=== PATIENT | male | born 1940 | race Caucasian/White ===

== ENCOUNTER → 2018-09-01 | Outpatient (REF) | payer OTHER, MEDICARE ==
[2018-09-02 14:14] LABS: ANTINUCLEAR ANTIBODIES DIRECT Negative (Negative)
== END ==
LOC: M LABNEURO 10:37
PROVIDERS: ATTEND Psychiatry & Neurology Neurology
DX: G43.909 Migraine, unspecified, not intractable, without status migrainosus (principal)

== ENCOUNTER → 2019-07-21 | Outpatient (REF) | payer MEDICARE, OTHER ==
[2019-07-21 13:59] LABS: FREE T4 1.07 NG/DL (0.76-1.46); TOTAL PROTEIN 7.1 GM/DL (6.4-8.2)
[2019-07-21 14:01] LABS: FOLATE > 24.0 NG/ML; VITAMIN B12 LEVEL 1326 PG/ML
[2019-07-21 15:00] LABS: HEMOGLOBIN A1c 5.4 %
[2019-07-25 11:02] LABS: ALBUMIN 3.97 GM/DL (3.29-5.55); ALBUMIN % 55.9 % (55.8-66.1); ALPHA-1-GLOBULIN % 6.1 % (2.9-4.9); ALPHA-1-GLOBULINS 0.43 GM/DL (0.17-0.41); ALPHA-2-GLOBULINS % 13.9 % (7.1-11.8); BETA-2-GLOBULINS % 5.9 % (3.2-6.5); GAMMA GLOBULIN % 13.2 % (11.1-18.8)
[2019-07-25 11:03] LABS: ALPHA-2-GLOBULINS 0.99 GM/DL (0.42-0.99); BETA-1-GLOBULINS 0.36 GM/DL (0.28-0.60); BETA-2-GLOBULINS 0.42 GM/DL (0.19-0.55); GAMMA GLOBULINS 0.94 GM/DL (0.65-1.58)
== END ==
LOC: M LABNEURO 11:32
PROVIDERS: ATTEND Psychiatry & Neurology Neurology
DX: E11.9 Type 2 diabetes mellitus without complications (principal); R26.81 Unsteadiness on feet; E07.9 Disorder of thyroid, unspecified

== ENCOUNTER → 2021-09-11 | Outpatient (CLI) | payer MEDICARE, OTHER ==
[~2021-09-11] MED LIST: AMLO1TAB24 PO; AMLO1TAB25 PO; ATOR40TA75 PO; BISA5TAB72 PO; CITRTAB16 PO; CVS5000S2 PO; FERR325T3 PO; FOLI1TAB11 PO; GLUC1TAB58 PO; MARIJUANA; MIRT-62 PO; MULTTAB86 PO; OMEG12003 PO; OXYC10TA12 PO; PANT40TA29 PO; PROP60CA PO
== END ==
LOC: M PAIN 11:15
PROVIDERS: ATTEND Nurse Practitioner Family
DX: M79.10 Myalgia, unspecified site (principal); M54.2 Cervicalgia; M96.1 Postlaminectomy syndrome, not elsewhere classified; Z86.59 Personal history of other mental and behavioral disorders; E66.01 Morbid (severe) obesity due to excess calories; Z68.41 Body mass index [BMI] 40.0-44.9, adult; Z79.899 Other long term (current) drug therapy

== ENCOUNTER → 2021-09-18 | Outpatient (CLI) | payer MEDICARE, OTHER | LOC: M LABSMTC 11:54 | PROVIDERS: ATTEND Anesthesiology | DX: Z01.812 Encounter for preprocedural laboratory examination (principal); Z20.822 Contact with and (suspected) exposure to COVID-19 ==

== ENCOUNTER → 2021-09-24 | Outpatient (CLI) | payer MEDICARE, OTHER | LOC: M LABSMTC 09:02 | PROVIDERS: ATTEND Anesthesiology | DX: Z01.812 Encounter for preprocedural laboratory examination (principal); Z11.52 Encounter for screening for COVID-19 ==

== ENCOUNTER → 2021-10-23 | Outpatient (CLI) | payer MEDICARE, OTHER ==
[~2021-10-23] MED LIST changes: +FLUO10CA18 PO; +MELA5TAB47 PO
== END ==
LOC: M LABSMTC 10:16
PROVIDERS: ATTEND Anesthesiology
DX: Z01.812 Encounter for preprocedural laboratory examination (principal); Z20.822 Contact with and (suspected) exposure to COVID-19

== ENCOUNTER 2021-10-28 08:31 | Day surgery (SDC) | payer OTHER ==
[~2021-10-28] VITALS: Ht 172.7 cm; Wt 75.2 kg
[~2021-10-28 08:31] MED LIST changes: +NS 1,000 ML IV ONE
[2021-10-28] MEDS ORDERED: propofoL 200 MG/20 ML VIAL As Ordered ONE (10:34)
[2021-10-28] MEDS ORDERED: LIDOCAINE 2% 100MG/5ML SDV (FOR ANES.) As Ordered ONE (10:34)
[2021-10-28] MEDS ORDERED: LIDOCAINE VISCOUS 2% SOLN 15ML UDC As Ordered ONE (11:12)
[2021-10-28 12:00] VITALS: BP 132/61
== END 2021-10-28 12:08 | disposition home or self-care (01) ==
LOC: M OPP 08:31
PROVIDERS: ATTEND Internal Medicine Gastroenterology
DX: D12.6 Benign neoplasm of colon, unspecified (principal); K64.8 Other hemorrhoids; R93.3 Abnormal findings on diagnostic imaging of other parts of digestive tract; Z98.0 Intestinal bypass and anastomosis status; R13.10 Dysphagia, unspecified; Z79.899 Other long term (current) drug therapy; Z85.46 Personal history of malignant neoplasm of prostate

== ENCOUNTER → 2021-10-29 | Outpatient (CLI) | payer MEDICARE, OTHER ==
[~2021-10-29] MED LIST changes: -NS 1,000 ML IV ONE
== END ==
LOC: M LABSMTC 10:24
PROVIDERS: ATTEND Anesthesiology
DX: Z01.812 Encounter for preprocedural laboratory examination (principal); Z20.822 Contact with and (suspected) exposure to COVID-19

== ENCOUNTER → 2021-11-03 | Outpatient (CLI) | payer MEDICARE, OTHER | LOC: M PAIN 10:30 | PROVIDERS: ATTEND Nurse Practitioner Family | DX: M79.10 Myalgia, unspecified site (principal); M54.2 Cervicalgia; M96.1 Postlaminectomy syndrome, not elsewhere classified; G89.29 Other chronic pain; Z86.59 Personal history of other mental and behavioral disorders; Z79.899 Other long term (current) drug therapy ==

== ENCOUNTER → 2023-04-16 | Outpatient (CLI) | payer OTHER ==
[~2023-04-16] MED LIST changes: +CITRACAL MAXIMU1 TAB PO; -CITRTAB16 PO
== END ==
LOC: M SLEEP 20:00
PROVIDERS: ATTEND Internal Medicine
DX: G47.9 Sleep disorder, unspecified (principal)